=== PATIENT | male | born 1950 | race Hispanic/Latino ===

== ENCOUNTER 2019-08-31 16:56 | Emergency (ER) | payer MEDICARE, OTHER ==
--- NOTE | 2019-08-31 18:02 | RAD ---
PORTABLE CHEST: 08/31/19 HISTORY: Cough and sore throat, flu-like symptoms. Heart size is enlarged. Pulmonary vessels are not engorged. Lungs appear clear of any infiltrative pr ocess. IMPRESSION: Cardiomegaly. POS: JOSH
[2019-08-31 18:48] LABS: #Basophils 0.1 thou/uL (0.0-0.2); #Eosinphils 0.2 thou/uL (0.0-0.7); #Monocytes 0.8 thou/uL (0.11-0.59); #Neutrophils 5.7 thou/uL (1.40-6.50); %Basophils 0.7 % (0.0-1.0); %Eosinophils 2.1 % (0.0-10.0); %Lymphocytes 22.6 % (21.0-51.0); %Neutrophils 65.5 % (42.0-75.0); Hemoglobin 15.5 g/dL (14.0-18.0); Mean Corpuscular HGB CONC 34.7 g/dL (32.0-36.0); Mean Corpuscular Hemoglobin 33.3 pg (27.0-31.0); Mean Platelet Volume 7.9 fL (7.4-10.4); Platelet Count 234 thou/uL (130-400); RBC Distribution Width 12.3 % (11.5-14.5); Red Blood Cell (RBC) Count 4.64 mill/uL (4.70-6.10); White Blood Cell (WBC) Count 8.7 thou/uL (4.8-10.8)
--- NOTE | 2019-08-31 19:06 | CT ---
CT OF BRAIN PERFORMED WITHOUT CONTRAST ENHANCEMENT: 08/31/19 HISTORY: Flu-like symptoms, now with syncope. There is a large cystic structure beginning in the middle cranial fossa and extending along the right cerebral convexity over the frontal temporal region. This has CT Hounsfield unit numbers that would suggest a cyst that is not associated with any shift of midline structures. There is no calcification associated with this and the density is not fat density. Therefore, I think the most likely diagnosi s is still a large arachnoid cyst. No hemorrhage or mass effect. IMPRESSION: Large right sided extra-axial cystic appearing collection which appears to represent a large arachnoi d cyst. No signs of hemorrhage or mass effect. POS: JOSH
[2019-08-31 19:13] LABS: ALT (SGPT) 17 U/L (8-55); AST (SGOT) 19 U/L (5-34); Albumin 4.2 g/dL (3.4-4.8); Alkaline Phosphatase 72 U/L (40-110); Anion Gap 13 mmol/L (10-20); BUN (Urea Nitrogen) 13 mg/dL (8.4-25.7); Bilirubin, Total 0.5 mg/dL (0.2-1.2); Calc. Creatinine Clearance 0 mL/min (70-130); Calcium 9.6 mg/dL (7.8-10.44); Carbon Dioxide 29 mmol/L (23-31); Chloride 100 mmol/L (98-107); Estimated GFR-MDRD Greater than 90; Globulin 3.4 g/dL (2.4-3.5); Glucose 109 mg/dL (80-115); Potassium 4.4 mmol/L (3.5-5.1); Protein, Total 7.6 g/dL (5.8-8.1); Sodium 138 mmol/L (136-145)
--- NOTE | 2019-09-05 13:34 | EKG ---
Test Reason : Blood Pressure : / mmHG Vent. Rate : 078 BPM Atrial Rate : 078 BPM P-R Int : 138 ms QRS Dur : 106 ms QT Int : 378 ms P-R-T Axes : 039 -06 075 degrees QTc Int : 430 ms Normal sinus rhythm with sinus arrhythmia Incomplete right bundle branch block Nonspecific T wave abnormality Abnormal ECG Confirmed by SANDRO REED ([id number]), publications editor FLORES NUÑEZ ([id number] on 09/05/2019 1:33:55 PM Referred By: Confirmed By:SANDRO REED
== END 2019-08-31 21:42 | disposition home or self-care (01) ==
LOC: ERS 16:56
DX: I10 Essential (primary) hypertension (principal); R05 Cough; E78.00 Pure hypercholesterolemia, unspecified
CPT/HCPCS: 70450; 71045; 80053; 83880; 84484; 85025; 93005; 94760; 96360

== ENCOUNTER 2024-07-22 18:13 | Inpatient (IN) | payer MEDICARE, OTHER ==
[2024-07-22 19:26] LABS: #Basophils 0.06 10x3/uL (0.0-0.2); %Basophils 0.5 % (0.0-1.0); %Eosinophils 1.2 % (0.0-10.0); %Lymphocytes 11.6 % (21.0-51.0); %Monocytes 10.2 % (0.0-10.0); %Neutrophils 76.1 % (42.0-75.0); Hematocrit 48.4 % (42.0-52.0); Hemoglobin 15.8 g/dL (14.0-18.0); Mean Corpuscular HGB CONC 32.6 g/dL (32.0-36.0); Mean Corpuscular Hemoglobin 31.9 pg (27.0-31.0); Mean Corpuscular Volume 97.8 fL (78.0-98.0); Mean Platelet Volume 9.6 fL (7.4-10.4); Platelet Count 203 10x3/uL (130-400); RBC Distribution Width 13.3 % (11.5-14.5); Red Blood Cell (RBC) Count 4.95 mill/uL (4.70-6.10)
[2024-07-22 19:46] LABS: ALT (SGPT) 18 U/L (Less than 45); AST (SGOT) 26 U/L (11-34); Albumin 3.6 g/dL (3.1-4.5); Alkaline Phosphatase 98 U/L (40-110); Anion Gap 14 mmol/L (10-20); BUN (Urea Nitrogen) 11 mg/dL (8.4-25.7); Calc. Creatinine Clearance 0 mL/min (70-130); Calcium 9.8 mg/dL (7.8-10.44); Carbon Dioxide 36 mmol/L (23-31); Chloride 88 mmol/L (98-107); Estimated GFR 92; Globulin 3.8 g/dL (2.4-3.5); Glucose 104 mg/dL (83-110); Potassium 4.9 mmol/L (3.5-5.1); Protein, Total 7.4 g/dL (5.8-8.1); Sodium 133 mmol/L (136-145)
[2024-07-22 19:51] LABS: Troponin I 0.016 ng/mL (< 0.028)
[2024-07-22 20:03] LABS: Bacteria/HPF None Seen HPF (None Seen); Bilirubin Negative (Negative); Blood, Urine Negative (Negative); CAUTI Indications for Culture Dysuria,urgency,freq; Clarity Clear (Clear); Glucose, Urine (Dipstick) Normal (Negative); Ketone, Urine Negative (Negative); Leukocyte Negative Leu/uL (Negative); Nitrite Negative (Negative); Protein, Urine (Dipstick) 100 mg/dL (Neg-Trace); RBC/HPF 0-3 HPF (0-3); Specific Gravity, Urine 1.012 (1.002-1.036); Squamous Epithelial 0-3 HPF (0-3); WBC/HPF None Seen HPF (0-3)
[2024-07-22 20:05] LABS: Urine Culture Reflex No No
[2024-07-22] MEDS ORDERED: Sodium Chloride 0.9% 100 ML ONE (20:32)
[2024-07-22] MEDS ORDERED: Cefepime 2 GM VIAL ONE (20:32)
[2024-07-22] MEDS ORDERED: Clindamycin/D5W 600 mg/50 ml Premix Bag ONE (21:43)
[2024-07-23] MEDS ORDERED: Acetaminophen 325 MG TAB PO PRN (00:06)
[2024-07-23] MEDS ORDERED: traMADol HCl 50 MG TAB PO PRN (00:06)
[2024-07-23] MEDS ORDERED: Albuterol 2.5 MG (3 mL) NEB NEB PRN (00:11)
[2024-07-23 01:01] VITALS: BMI 47.5
[2024-07-23] MEDS: Vancomycin (BATCH) 2.5 GM in Premix 1 BAG IVPB SCH (01:28)
[2024-07-23] MEDS: Furosemide 40 MG (4 mL) VIAL SLOW IVP SCH ×3 (01:40→16:03)
[2024-07-23] MEDS: Levothyroxine Sodium 88 MCG TAB PO SCH (05:23)
[2024-07-23 07:01] LABS: #Basophils 0.07 10x3/uL (0.0-0.2); %Basophils 0.6 % (0.0-1.0); %Lymphocytes 10.1 % (21.0-51.0); %Monocytes 11.6 % (0.0-10.0); Hematocrit 47.9 % (42.0-52.0); Hemoglobin 16.3 g/dL (14.0-18.0); Mean Corpuscular Hemoglobin 32.7 pg (27.0-31.0); Mean Corpuscular Volume 96.2 fL (78.0-98.0); Mean Platelet Volume 10.8 fL (7.4-10.4); Platelet Count 172 10x3/uL (130-400); RBC Distribution Width 13.6 % (11.5-14.5); Red Blood Cell (RBC) Count 4.98 mill/uL (4.70-6.10)
[2024-07-23 09:16] LABS: Anion Gap 14 mmol/L (10-20); BUN (Urea Nitrogen) 11 mg/dL (8.4-25.7); Calc. Creatinine Clearance 175 mL/min (70-130); Calcium 9.3 mg/dL (7.8-10.44); Carbon Dioxide 36 mmol/L (23-31); Chloride 92 mmol/L (98-107); Estimated GFR 92; Glucose 116 mg/dL (83-110); Potassium 4.5 mmol/L (3.5-5.1); Sodium 137 mmol/L (136-145)
[2024-07-23] MEDS: Losartan 25 MG TAB PO SCH (09:22)
[2024-07-23] MEDS: Loratadine 10 MG TAB PO SCH (09:23)
[2024-07-23] MEDS: Aspirin 81 mg Enteric Coated Tablet PO SCH (09:23)
[2024-07-23] MEDS: Hydrochlorothiazide 25 MG TAB PO SCH (09:23)
[2024-07-23] MEDS: Allopurinol 100 MG TAB PO SCH (09:23)
[2024-07-23] MEDS: Enoxaparin 40 MG (0.4 mL) SYRINGE SC SCH (09:30)
[2024-07-23] MEDS: Atorvastatin Calcium 40 MG TAB PO SCH (20:30)
[2024-07-23 23:34] VITALS: BMI 47.5
[2024-07-24 05:58] LABS: #Basophils 0.03 10x3/uL (0.0-0.2); %Basophils 0.3 % (0.0-1.0); %Eosinophils 0.8 % (0.0-10.0); %Lymphocytes 8.8 % (21.0-51.0); %Monocytes 10.3 % (0.0-10.0); %Neutrophils 79.4 % (42.0-75.0); Hematocrit 48.9 % (42.0-52.0); Hemoglobin 15.8 g/dL (14.0-18.0); Mean Corpuscular HGB CONC 32.3 g/dL (32.0-36.0); Mean Corpuscular Hemoglobin 32.1 pg (27.0-31.0); Mean Corpuscular Volume 99.4 fL (78.0-98.0); Mean Platelet Volume 9.8 fL (7.4-10.4); Platelet Count 204 10x3/uL (130-400); RBC Distribution Width 13.5 % (11.5-14.5); Red Blood Cell (RBC) Count 4.92 mill/uL (4.70-6.10)
[2024-07-24 06:15] LABS: Anion Gap 15 mmol/L (10-20); BUN (Urea Nitrogen) 15 mg/dL (8.4-25.7); Calc. Creatinine Clearance 173 mL/min (70-130); Calcium 9.4 mg/dL (7.8-10.44); Carbon Dioxide 35 mmol/L (23-31); Chloride 90 mmol/L (98-107); Estimated GFR 91; Glucose 112 mg/dL (83-110); Potassium 5.1 mmol/L (3.5-5.1); Sodium 135 mmol/L (136-145)
[2024-07-24 07:38] VITALS: BP 155/90; TEMP 99.2
[2024-07-24] MEDS: Furosemide 40 MG (4 mL) VIAL SLOW IVP SCH (08:30)
== END 2024-07-24 14:43 | disposition home or self-care (01) | DRG 640 ==
LOC: ERS 18:13 → T4-B 23:42 → OBSVTOIN 07-23 15:14
PROVIDERS: ADMIT Family Medicine; ATTEND Family Medicine
DX: E87.70 Fluid overload, unspecified (principal); J96.01 Acute respiratory failure with hypoxia; E66.2 Morbid (severe) obesity with alveolar hypoventilation; Z68.42 Body mass index [BMI] 45.0-49.9, adult; E78.5 Hyperlipidemia, unspecified; E03.9 Hypothyroidism, unspecified; I10 Essential (primary) hypertension; J45.909 Unspecified asthma, uncomplicated; M10.9 Gout, unspecified; F10.90 Alcohol use, unspecified, uncomplicated; I87.2 Venous insufficiency (chronic) (peripheral); Z91.048 Other nonmedicinal substance allergy status; Z90.49 Acquired absence of other specified parts of digestive tract; Z79.82 Long term (current) use of aspirin; Z79.899 Other long term (current) drug therapy; Z79.890 Hormone replacement therapy
CPT/HCPCS: 36415; 71045; 80048; 80053; 81001; 83605; 83880; 84484; 85025; 85379; 87040; 87086; 93005; 93306; 94760; 96365; 96367; 96372; 96375; 96376; 97139; G0378; J0692; J1650; J1940; J3370; J3490